=== PATIENT | female | born 1930 | race African-American/Black ===

== ENCOUNTER 2017-05-16 11:52 | Inpatient (IN) ==
[2017-05-16] MEDS ORDERED: ACETAMINOPHEN 500 MG TABLET PO STA (13:07)
[2017-05-16] MEDS ORDERED: ACETAMINOPHEN 500 MG TABLET ONE (13:11)
[2017-05-16 13:23] LABS: Apearance,Urine Slightly Hazy (Clear); Bilirubin,Urine Negative (Negative); Blood, Urine Small mg/dL (Negative); Glucose,Urine (UA) 50 mg/dL (Negative); Hyaline Casts,Urine 1 /LPF (0-3); Ketones,Urine Negative (Negative); Mucus,Urine Occasional /LPF (Occasional); Nitrite,Urine Negative (Negative); Protein,Urine Negative; RBC,Urine 10 /HPF (0-4); Squamous Epithelial Cell,Urine Occasional /HPF (0-10); Urine Color Yellow (Yellow); Urine Specific Gravity 1.009 (1.001-1.035); Urine Urobilinogen < 2.0 EU/DL (0.2-1.0); WBC,Urine 1 /HPF (0-6)
[2017-05-16 13:46] LABS: Basophils # 0.1 10*3/uL (0.0-0.2); Basophils % 0.2 % (0.0-0.8); Eosinophils % 0.2 % (0.00-10.9); Hemoglobin 12.1 GM/DL (12.0-16.0); Immature Granulocytes % 0.7 %; Immature Granulocytes Absolute 0.19 #; Lymphocytes # 1.1 10*3/uL (1.4-4.0); Lymphocytes % 4.3 % (21.3-54.2); Mean Corpuscular HGB Conc 32.7 GM/DL (32-36); Mean Corpuscular Hemoglobin 28 PG (27-34); Mean Corpuscular Volume 85.1 FL (87-102); Mean Platelet Volume 10.4 FL (9.6-12.0); Monocytes # 0.9 10*3/uL (0.11-0.8); Monocytes % 3.4 % (1.7-12.7); Neutrophils # 23.7 10*3/uL (1.4-7.4); Neutrophils % 91.2 % (38.7-73.9); Platelet Count 245 T/CUMM (130-400); Red Blood Count 4.35 MC/CUMM (3.8-5.5)
[2017-05-16 14:08] LABS: Albumin 3.5 G/DL (3.4-5.0); Bilirubin,Total 0.5 MG/DL (0.2-1.0); Calcium 9.2 MG/DL (8.5-10.1); Osmolality,Calculated 283.8 MOS/KG (273-304); Potassium 4.3 MMOL/L (3.5-5.1); Total Protein 8.9 G/DL (6.4-8.3)
[2017-05-16] MEDS ORDERED: CLINDAMYCIN INJ 600 MG in PREMIX 1 EACH IV STA (14:44)
[2017-05-16] MEDS ORDERED: CLINDAMYCIN INJ 50 ML IV ONE (15:11)
[2017-05-16 15:25] LABS: Hypochromasia Slight; Lymphocytes 1 % (20-55); Platelet Estimate Normal; Segmented Neutrophils 97 % (50-85); Target Cells Few; Total Cells Counted 100
[2017-05-16 15:27] LABS: Lactic Acid 1.7 MMOL/L (0.4-2.0)
[2017-05-16] MEDS ORDERED: CEFTAROLINE 600 MG in SODIUM CHLORIDE 0.9% 100 ML IV STA (15:35)
[2017-05-16] MEDS ORDERED: DEXTROSE 50% 25 GM/50 ML VIAL IV PRN (16:17)
[2017-05-16] MEDS ORDERED: LACTULOSE 20 GM/30 ML UDCUP PO PRN (16:17)
[2017-05-16] MEDS ORDERED: GLUCAGON 1 MG VIAL IM PRN (16:17)
[2017-05-16] MEDS ORDERED: ONDANSETRON 4 MG/2 ML VIAL IV PRN (16:17)
[2017-05-16] MEDS ORDERED: ACETAMINOPHEN 325 MG TABLET PO PRN (16:17)
[2017-05-16] MEDS: INSULIN LISPRO 100 UNIT/ML SUBCUT SCH ×2 (17:11→21:04)
[2017-05-16] MEDS: SODIUM CHLORIDE 0.9% 1,000 ML IV SCH (17:12)
[2017-05-16] MEDS ORDERED: ENOXAPARIN 30 MG/0.3 ML SYRINGE SUBCUT SCH (21:00)
[2017-05-16] MEDS ORDERED: DOXEPIN HCL TOP SCH (21:00)
[2017-05-16] MEDS: CEFTAROLINE 400 MG in SODIUM CHLORIDE 0.9% 50 ML IV SCH (21:07)
[2017-05-17 02:39] LABS: Basophils % 0.2 % (0.0-0.8); Eosinophils # 0.1 10*3/uL (0.0-0.87); Eosinophils % 0.3 % (0.00-10.9); Hematocrit 30.3 VOL% (35.7-47.0); Hemoglobin 9.9 GM/DL (12.0-16.0); Immature Granulocytes % 0.4 %; Immature Granulocytes Absolute 0.08 #; Lymphocytes # 1.5 10*3/uL (1.4-4.0); Lymphocytes % 8.5 % (21.3-54.2); Mean Corpuscular HGB Conc 32.7 GM/DL (32-36); Mean Corpuscular Hemoglobin 28 PG (27-34); Mean Corpuscular Volume 84.6 FL (87-102); Mean Platelet Volume 10.9 FL (9.6-12.0); Monocytes % 5.7 % (1.7-12.7); Neutrophils # 15.2 10*3/uL (1.4-7.4); Neutrophils % 84.9 % (38.7-73.9); Platelet Count 227 T/CUMM (130-400); Red Blood Count 3.58 MC/CUMM (3.8-5.5); Red Cell Distribution Width 15.1 % (9.3-17.3); White Blood Count 17.9 T/CUMM (4-12)
[2017-05-17 03:09] LABS: Calcium 8.2 MG/DL (8.5-10.1); Osmolality,Calculated 289.3 MOS/KG (273-304); Potassium 3.5 MMOL/L (3.5-5.1)
[2017-05-17] MEDS: SODIUM CHLORIDE 0.9% 1,000 ML IV SCH ×2 (04:04→17:35)
[2017-05-17] MEDS: INSULIN LISPRO 100 UNIT/ML SUBCUT SCH ×4 (09:21→21:06)
[2017-05-17] MEDS: PANTOPRAZOLE 40 MG TABLET PO SCH (09:21)
[2017-05-17] MEDS: LOVASTATIN 20 MG TABLET PO SCH (09:22)
[2017-05-17] MEDS: FERROUS SULFATE 325 MG TABLET PO SCH (09:22)
[2017-05-17] MEDS: ASPIRIN EC 81 MG TABLET PO SCH (09:22)
[2017-05-17] MEDS: CEFTAROLINE 400 MG in SODIUM CHLORIDE 0.9% 50 ML IV SCH ×2 (09:24→21:06)
[2017-05-17] MEDS ORDERED: SKIN HEALING OINT (AQUAPHOR) 50 GM TUBE TOP PRN (15:36)
[2017-05-17] MEDS: ENOXAPARIN 40 MG/0.4 ML SYRINGE SUBCUT SCH (21:06)
[2017-05-18 05:43] LABS: Basophils % 0.3 % (0.0-0.8); Eosinophils # 0.6 10*3/uL (0.0-0.87); Eosinophils % 5.1 % (0.00-10.9); Hematocrit 29.1 VOL% (35.7-47.0); Hemoglobin 9.3 GM/DL (12.0-16.0); Immature Granulocytes % 0.4 %; Immature Granulocytes Absolute 0.04 #; Lymphocytes % 17.6 % (21.3-54.2); Mean Corpuscular Hemoglobin 28 PG (27-34); Mean Corpuscular Volume 86.4 FL (87-102); Mean Platelet Volume 10.9 FL (9.6-12.0); Monocytes % 8.5 % (1.7-12.7); Neutrophils # 7.7 10*3/uL (1.4-7.4); Neutrophils % 68.1 % (38.7-73.9); Platelet Count 214 T/CUMM (130-400); Red Blood Count 3.37 MC/CUMM (3.8-5.5); Red Cell Distribution Width 15.3 % (9.3-17.3); White Blood Count 11.2 T/CUMM (4-12)
[2017-05-18] MEDS: INSULIN LISPRO 100 UNIT/ML SUBCUT SCH ×4 (07:47→21:21)
[2017-05-18] MEDS: PANTOPRAZOLE 40 MG TABLET PO SCH (08:54)
[2017-05-18] MEDS: FERROUS SULFATE 325 MG TABLET PO SCH (08:54)
[2017-05-18] MEDS: LOVASTATIN 20 MG TABLET PO SCH (08:54)
[2017-05-18] MEDS: ASPIRIN EC 81 MG TABLET PO SCH (08:54)
[2017-05-18] MEDS: CLINDAMYCIN 150 MG CAPSULE PO SCH ×2 (12:05→17:23)
[2017-05-18] MEDS: ENOXAPARIN 40 MG/0.4 ML SYRINGE SUBCUT SCH (21:21)
[2017-05-19] MEDS: CLINDAMYCIN 150 MG CAPSULE PO SCH ×2 (00:12→05:54)
[2017-05-19 06:23] VITALS: BP 148/69
[2017-05-19] MEDS: LOVASTATIN 20 MG TABLET PO SCH (08:05)
[2017-05-19] MEDS: ASPIRIN EC 81 MG TABLET PO SCH (08:05)
[2017-05-19] MEDS: INSULIN LISPRO 100 UNIT/ML SUBCUT SCH (08:05)
[2017-05-19] MEDS: PANTOPRAZOLE 40 MG TABLET PO SCH (08:05)
[2017-05-19] MEDS: FERROUS SULFATE 325 MG TABLET PO SCH (08:05)
== END 2017-05-19 08:24 | disposition home or self-care (01) | DRG 872 ==
LOC: N.ED 11:52 → SUATTDRO 14:36 → N.EDINP 14:36 → N.2E 16:14
PROVIDERS: ADMIT Internal Medicine; ATTEND Internal Medicine Cardiovascular Disease